=== PATIENT | male | born 1995 | race Caucasian/White ===

== ENCOUNTER 2024-03-16 13:35 | Observation (INO) | payer OTHER ==
[2024-03-16] MEDS: ALBUTEROL NEBULIZED 2.5 MG/3 ML INHALATION STA ×2 (14:04→14:54)
[2024-03-16] MEDS: IPRATROPIUM 0.5 MG/2.5 ML NEBU INHALATION STA ×2 (14:04→14:54)
--- NOTE | 2024-03-16 14:09 | ED ---
General Adult HPI - General Chief complaint: Shortness of Breath Stated complaint: SOB Time Seen by Provider: 03/16/24 13:47 Source: patient, RN notes reviewed, old records reviewed Mode of arrival: ambulatory Limitations: no limitations - History of Present Illness Initial comments: 29-year-old male presenting for evaluation of cough and dyspnea. Patient states he was seen at outside hospital treated for pneumonia. He states that this was approximately 1 week ago. The history is somewhat limited due to the patient's respiratory distress. He has no prior history of asthma but states he does use vaporized tobacco products. - Related Data Allergies Allergy/AdvReac Type Severity Reaction Status Date / Time No Known Allergies Allergy Verified 03/16/24 13:46 Review of Systems ROS Statement: Those systems with pertinent positive or pertinent negative responses have been documented in the HPI. ROS Other: All systems not noted in ROS Statement are negative. Past Medical History Past Medical History: Pneumonia History of Any Multi-Drug Resistant Organisms: None Reported Past Surgical History: No Surgical Hx Reported Past Psychological History: No Psychological Hx Reported Smoking Status: Vaper Past Alcohol Use History: None Reported Past Drug Use History: None Reported General Exam Limitations: no limitations General appearance: in distress Head exam: Present: atraumatic, normocephalic Eye exam: Present: normal appearance, PERRL ENT exam: Present: normal exam Neck exam: Present: normal inspection. Absent: tenderness, meningismus Respiratory exam: Present: respiratory distress, wheezes, accessory muscle use, decreased breath sounds, prolonged expiratory Cardiovascular Exam: Present: regular rate, normal rhythm GI/Abdominal exam: Present: soft. Absent: distended, tenderness Extremities exam: Present: normal inspection, normal capillary refill Neurological exam: Present: alert, oriented X3, CN II-XII intact. Absent: motor sensory deficit Psychiatric exam: Present: normal affect, normal mood Skin exam: Present: warm, dry, intact Course Vital Signs 03/16/24 03/16/24 03/16/24 13:41 14:05 14:14 Temperature 98 F Pulse Rate 114 H 96 92 Respiratory 18 Rate Blood Pressure 131/64 O2 Sat by Pulse 88 L Oximetry 03/16/24 03/16/24 03/16/24 14:26 14:39 14:54 Temperature Pulse Rate 80 83 76 Respiratory Rate Blood Pressure O2 Sat by Pulse Oximetry 03/16/24 15:16 Temperature Pulse Rate 80 Respiratory Rate Blood Pressure O2 Sat by Pulse Oximetry Medical Decision Making - Medical Decision Making Was pt. sent in by a medical professional or institution (TEMITOPE Pulliam, LITHOGRAPHIC PLATE MAKER, urgent care, hospital, or correction...) When possible be specific @ -[No] Did you speak to anyone other than the patient for history (EMS, parent, family, police, friend...)? What history was obtained from this source @ -[No] Did you review nursing and triage notes (agree or disagree)? Why? @ -[I reviewed and agree with nursing and triage notes] Were old charts reviewed (outside hosp., previous admission, EMS record, old EKG, old radiological studies, urgent care reports/EKG's, correction records)? Report findings @ -[No old charts were reviewed] Differential Dyspnea: Coronary syndrome, arrhythmia, tamponade, asthma, COPD, pulmonary embolism, pneumonia, pneumothorax, pulmonary effusion, anaphylaxis, diabetic ketoacidosis, flailed chest, pulmonary contusion, diaphragmatic rupture, anemia, neuromuscu lar, this is not meant to be an all-inclusive list. EKG interpreted by me (3pts min.). @ -EKG sinus rhythm with a ventricular rate of 87, ME interval 139, QRS duration 85, QTc 326 X-rays interpreted by me (1pt min.). @Single view chest x-ray negative for pneumothorax, no focal pneumonia CT interpreted by me (1pt min.). @ -[None done] U/S interpreted by me (1pt. min.). @ -[None done] What testing was considered but not performed or refused? (CT, X-rays, U/S, labs)? Why? @ -[None] What meds were considered but not given or refused? Why? @ -[None] Did you discuss the management of the patient with other professionals (professionals i.e. TEMITOPE Pulliam, LITHOGRAPHIC PLATE MAKER, lab, RT, psych nurse, social psychologist, sequencing machine operator, teacher, asset protection officer, rn case manager hospice)? Give summary @ - Sheet will accept admission Was smoking cessation discussed for >3mins.? @ -[No] Was critical care preformed (if so, how long)? @Yes, 35 minutes Were there social determinants of health that impacted care today? How? (Homelessness, low income, unemployed, alcoholism, drug addiction, transportation, low edu. Level, literacy, decrease access to med. care, intermediate, rehab)? @ -[No] Was there de-escalation of care discussed even if they declined (Discuss DNR or withdrawal of care, Hospice)? DNR status @ -[No] What co-morbidities impacted this encounter? (DM, HTN, Smoking, COPD, CAD, Cancer, CVA, ARF, Chemo, Hep., AIDS, mental health diagnosis, sleep apnea, morbid obesity)? @ -[None] Was patient admitted / discharged? Hospital course, mention meds given and route, prescriptions, significant lab abnormalities, going to OR and other pertinent info. @ -29-year-old male presenting in extremis, minimal air entry, tachypnea, hyp oxia. Patient does have end expiratory wheeze and there is concern for reactive airway, status asthmaticus. Patient is treated with a total of 15 mg of albuterol and 1.5 of Atrovent, 2 g of magnesium is administered as well as Solu- Medrol. The patient has significant improvement but continues to wheeze and require supplemental oxygen. He will be admitted for asthma exacerbation. Pulmonology is placed on consult. Albuterol, Atrovent, steroids will be continued. Undiagnosed new problem with uncertain prognosis? @ -[No] Drug Therapy requiring intensive monitoring for toxicity (Heparin, Nitro, Insulin, Cardizem)? @ -[No] Were any procedures done? @ -[No] Diagnosis/symptom? @ -Status asthmaticus Acute, or Chronic, or Acute on Chronic? @ -Acute Uncomplicated (without systemic symptoms) or Complicated (systemic symptoms)? @ -[default] Side effects of treatment? @ -[No] Exacerbation, Progression, or Severe Exacerbation? @ -[No] Poses a threat to life or bodily function? How? (Chest pain, USA, VT, pneumonia, PE, COPD, DKA, ARF, appy, cholecystitis, CVA, Diverticulitis, Homicidal, Suicidal, threat to staff... and all critical care pts) @Yes, respiratory failure - Lab Data Result diagrams: 03/16/24 14:00 03/16/24 14:00 Lab Results 03/16/24 03/16/24 03/16/24 Range/Units 14:00 14:00 14:00 WBC 9.5 (3.8-10.6) k/uL RBC 5.18 (4.30-5.90) m/uL Hgb 14.0 (13.0-17.5) gm/dL Hct 43.8 (39.0-53.0) % MCV 84.6 (80.0-100.0) fL MCH 27.0 (25.0-35.0) pg MCHC 32.0 (31.0-37.0) g/dL RDW 13.3 (11.5-15.5) % Plt Count 290 (150-450) k/uL MPV 6.8 Neutrophils % 58 % Lymphocytes % 19 % Monocytes % 5 % Eosinophils % 17 % Basophils % 0 % Neutrophils # 5.5 (1.3-7.7) k/uL Lymphocytes # 1.8 (1.0-4.8) k/uL Monocytes # 0.5 (0-1.0) k/uL Eosinophils # 1.6 H (0-0.7) k/uL Basophils # 0.0 (0-0.2) k/uL PT 10.6 (10.0-12.5) sec INR 1.0 (<1.2) APTT 25.8 (22.0-30.0) sec Sodium 137 (137-145) mmol/L Potassium 4.6 (3.5-5.1) mmol/L Chloride 103 (98-107) mmol/L Carbon Dioxide 27 (22-30) mmol/L Anion Gap 7 mmol/L BUN 11 (9-20) mg/dL Creatinine 0.67 (0.66-1.25) mg/dL Est GFR (CKD-EPI)AfAm >90 (>60 ml/min/1.73 sqM) Est GFR (CKD-EPI)NonAf >90 (>60 ml/min/1.73 sqM) Glucose 130 H (74-99) mg/dL Plasma Lactic Acid Leandro (0.7-2.0) mmol/L Calcium 9.4 (8.4-10.2) mg/dL Magnesium 2.2 (1.6-2.3) mg/dL Total Bilirubin 0.6 (0.2-1.3) mg/dL AST 26 (17-59) U/L ALT 27 (4-49) U/L Alkaline Phosphatase 85 (38-126) U/L Troponin I (0.000-0.034) ng/mL Total Protein 7.5 (6.3-8.2) g/dL Albumin 4.7 (3.5-5.0) g/dL 03/16/24 03/16/24 Range/Units 14:00 14:00 WBC (3.8-10.6) k/uL RBC (4.30-5.90) m/uL Hgb (13.0-17.5) gm/dL Hct (39.0-53.0) % MCV (80.0-100.0) fL MCH (25.0-35.0) pg MCHC (31.0-37.0) g/dL RDW (11.5-15.5) % Plt Count (150-450) k/uL MPV Neutrophils % % Lymphocytes % % Monocytes % % Eosinophils % % Basophils % % Neutrophils # (1.3-7.7) k/uL Lymphocytes # (1.0-4.8) k/uL Monocytes # (0-1.0) k/uL Eosinophils # (0-0.7) k/uL Basophils # (0-0.2) k/uL PT (10.0-12.5) sec INR (<1.2) APTT (22.0-30.0) sec Sodium (137-145) mmol/L Potassium (3.5-5.1) mmol/L Chloride (98-107) mmol/L Carbon Dioxide (22-30) mmol/L Anion Gap mmol/L BUN (9-20) mg/dL Creatinine (0.66-1.25) mg/dL Est GFR (CKD-EPI)AfAm (>60 ml/min/1.73 sqM) Est GFR (CKD-EPI)NonAf (>60 ml/min/1.73 sqM) Glucose (74-99) mg/dL Plasma Lactic Acid Leandro 1.3 (0.7-2.0) mmol/L Calcium (8.4-10.2) mg/dL Magnesium (1.6-2.3) mg/dL Total Bilirubin (0.2-1.3) mg/dL AST (17-59) U/L ALT (4-49) U/L Alkaline Phosphatase (38-126) U/L Troponin I <0.012 (0.000-0.034) ng/mL Total Protein (6.3-8.2) g/dL Albumin (3.5-5.0) g/dL Critical Care Time Critical Care Time: Yes Total Critical Care Time: 35 Disposition Clinical Impression: Asthma with status asthmaticus Disposition: ADMITTED IP TO THIS HOSP Condition: Serious Is patient prescribed a controlled substance at d/c from ED?: No Time of Disposition: 15:34
[2024-03-16] MEDS: SODIUM CHLORIDE 0.9% 1,000 ML IV STA (14:23)
[2024-03-16] MEDS: MAGNESIUM SULFATE-D5W PMX 1 GM in DEXTROSE/WATER 1 100ML.BAG IVPB SCH (14:28)
[2024-03-16] MEDS: methylPREDNISolone SOD SUCCI 125 MG/2 ML VIAL IV STA (14:28)
--- NOTE | 2024-03-16 14:32 | XR ---
EXAMINATION TYPE: XR chest 1V portable DATE OF EXAM: 03/16/2024 1:55 PM CLINICAL INDICATION:Male, 29 years old with history of andrei; PHH COMPARISON: None TECHNIQUE: XR chest 1V portable Frontal view of the chest. FINDINGS: Lungs/Pleura: There is no evidence of pleural effusion, focal consolidation, or pneumothorax. Pulmonary vascularity: Unremarkable. Heart/mediastinum: Cardiomediastinal silhouette is unremarkable. Musculoskeletal: No acute osseous pathology. IMPRESSION: No acute cardiopulmonary disease/process.
[2024-03-16 14:38] LABS: Basophils % (A) 0 %; Eosinophils # (A) 1.6 k/uL (0-0.7); Eosinophils % (A) 17 %; HCT 43.8 % (39.0-53.0); Lymphocytes # (A) 1.8 k/uL (1.0-4.8); Lymphocytes % (A) 19 %; MCV 84.6 fL (80.0-100.0); Mean Platelet Volume 6.8; Monocytes # (A) 0.5 k/uL (0-1.0); Monocytes % (A) 5 %; Neutrophils # (A) 5.5 k/uL (1.3-7.7); Neutrophils % (A) 58 %; Platelet Count 290 k/uL (150-450); RBC 5.18 m/uL (4.30-5.90); RDW 13.3 % (11.5-15.5); WBC 9.5 k/uL (3.8-10.6)
[2024-03-16 14:46] LABS: Partial Thromboplastin Time 25.8 sec (22.0-30.0); Prothrombin Time 10.6 sec (10.0-12.5)
[2024-03-16 14:59] LABS: ALT 27 U/L (4-49); AST 26 U/L (17-59); African American GFR (CKD) >90 (>60 ml/min/1.73 sqM); Albumin 4.7 g/dL (3.5-5.0); Alkaline Phosphatase 85 U/L (38-126); Anion Gap 7 mmol/L; Blood Urea Nitrogen 11 mg/dL (9-20); Calcium 9.4 mg/dL (8.4-10.2); Carbon Dioxide 27 mmol/L (22-30); Chloride 103 mmol/L (98-107); Glucose 130 mg/dL (74-99); Magnesium 2.2 mg/dL (1.6-2.3); Non-African American GFR(CKD) >90 (>60 ml/min/1.73 sqM); Potassium 4.6 mmol/L (3.5-5.1); Sodium 137 mmol/L (137-145); Total Bilirubin 0.6 mg/dL (0.2-1.3); Total Protein 7.5 g/dL (6.3-8.2)
[2024-03-16] MEDS ORDERED: NALOXONE 0.4 MG/ML 1 ML VIAL IVP PRN (15:32)
[2024-03-16] MEDS ORDERED: IPRATROPIUM-ALBUTEROL 3 ML NEB INHALATION PRN (15:32)
[2024-03-16] MEDS: IPRATROPIUM-ALBUTEROL 3 ML NEB INHALATION SCH (15:48)
[2024-03-16 18:07] LABS: Glucose,Whole Blood 174 mg/dL (70-110)
[2024-03-16] MEDS: methylPREDNISolone SOD SUCCI 125 MG/2 ML VIAL IV SCH (18:19)
[2024-03-16 20:24] LABS: Glucose,Whole Blood 261 mg/dL (70-110)
[2024-03-16] MEDS ORDERED: DEXTROSE 50% SYRINGE 50 ML IVP PRN ×2 (20:51)
[2024-03-16] MEDS: INSULIN ASPART (NovoLOG) 100 UNIT/ML VIAL SQ SCH (21:28)
--- NOTE | 2024-03-16 21:56 | CT ---
EXAMINATION TYPE: CT brain wo con DATE OF EXAM: 03/16/2024 COMPARISON: Prior CT 2012 HISTORY: r/o encephalopathy CT DLP: 1138.4 mGycm. Automated Exposure Control for Dose Reduction was Utilized. TECHNIQUE: CT scan of the head is performed without contrast. FINDINGS: There is no acute intracranial hemorrhage, mass effect, or midline shift identified. The ventricles and sulci are within normal limits in size. Dunbar-white matter differentiation is maintain ed. The globes are intact bilaterally. Dependent fluid in the left maxillary sinus. Mild/moderate mu cosal thickening in the right maxillary sinus with few small polyps. IMPRESSION: No acute intracranial hemorrhage or midline shift is seen. Acute left maxillary sinus di sease noted.
[2024-03-16 22:20] LABS: Amphetamine Screen,Urine Not Detected (NotDetected); Barbiturate Screen,Urine Not Detected (NotDetected); Benzodiazepines Screen,Urine Detected (NotDetected); Cocaine Screen,Urine Detected (NotDetected); Methadone Screen, Urine Not Detected (NotDetected); Opiate Screen,Urine Detected (NotDetected); Oxycodone Screen, Urine Not Detected (NotDetected); Phencyclidine Screen,Urine Not Detected (NotDetected); Tricyclic Antidepressant,Urine Not Detected (NotDetected); Urn Cannabinoid Scrn Detected (NotDetected)
[2024-03-17] MEDS ORDERED: LORazepam 2 MG/ML INJ IV PRN ×3 (01:59)
[2024-03-17] MEDS: LORazepam 0.5 MG TAB PO PRN (02:33)
[2024-03-17 06:02] LABS: Glucose,Whole Blood 166 mg/dL (70-110)
[2024-03-17 11:51] LABS: Glucose,Whole Blood 136 mg/dL (70-110)
--- NOTE | 2024-03-17 14:34 | HP ---
HISTORY AND PHYSICAL CHIEF COMPLAINT: Shortness of breath and cough. HISTORY OF PRESENT ILLNESS: This 29-year-old gentleman with a past medical history of pneumonia and spontaneous pneumothorax, also had extensive history of substance abuse including vaping and as well as snorting cocaine and fentanyl usage also. The patient is apparently treated for pneumonia . Currently, the patient is complaining of shortness of breath and cough and the patient admitted for further evaluation and treatment. The drug screen is positive for cocaine and THC. Otherwise, chest x-ray which I reviewed personally showed no acute process. There is no history of any fever, rigors, or chills at this time. The patient apparently has been signed for a rehab. PAST MEDICAL HISTORY: Reviewed include pneumonia, spontaneous pneumothorax. HOME MEDICATIONS: None. ALLERGIES: None. FAMILY HISTORY: No history of heart disease or strokes in the family. SOCIAL HISTORY: As mentioned earlier, there is extensive history of substance abuse history. REVIEW OF SYSTEMS: A 14-point review of systems is negative except as mentioned. PHYSICAL EXAMINATION: VITAL SIGNS: Pulse is 74, blood pressure 130/74, respirations 18. HEENT: Conjunctivae normal. NECK: No jugular venous distention. CARDIOVASCULAR: S1, S2. RESPIRATIONS: Diminished at the basis. Few scattered rhonchi and crackles, expiratory wheezing. ABDOMEN: Soft, nontender. NERVOUS SYSTEM: Focal. LABORATORY DATA: Glucose 261. ASSESSMENT: 1. Asthma acute exacerbation with acute purulent tracheobronchitis. 2. Eosinophilia. 3. Extensive history of substance abuse. 4. History of recent pneumonia. 5. History of spontaneous pneumothorax. RECOMMENDATIONS AND DISCUSSION: This 29-year-old gentleman presented with multiple complex medical issues, we will monitor the patient closely continue the current management and continue the symptomatic treatment. Continue with bronchodilators and steroids. I would recommend substance abuse rehab. Otherwise Pulmonary consultation. Prognosis guarded because of multiple complex medical issues. Further recommendations to follow. See orders for details. MMODL / IJN: [id number] / MTDD
--- NOTE | 2024-03-17 15:07 | P.CNPUL ---
History of Present Illness Consult date: 03/17/24 Requesting physician: Shane Macias Reason for consult: dyspnea, cough Chief complaint: Shortness of breath. History of present illness: Pulmonary consult dated March 17, 2024. 29-year-old male who presented to the emergency department, on March 16, complaining of shortness of breath. The patient apparently had a recent admission at [facility], for similar episode, 1 week ago. The patient is seen today in room 379. He is on 3 L of oxygen. The patient denies a history of any lung issues, although in the past, he did have a spontaneous pneumothorax. He does not smoke cigarettes, but he does vape. He apparently also drinks alcohol in excess. The patient is laying in bed, on 3 L. No audible wheezing noted. The patient apparently does not have any history of any lung issues, although pneumonia is mentioned in his past medical history. He denies any surgical history, and, does admit to vaping. He states he does not smoke cigarettes. He denies a history of asthma. Count is 9.5, hemoglobin 14, hematocrit 43.8, and platelet count is 290,000. Sodium 137, potassium 4.6, chlorides 103, CO2 27, BUN 11, creatinine 0.67. Glucose is 136. Troponin is less than 0.012. Albumin 4.7. His drug screen was positive for marijuana, cocaine, benzodiazepines, and opiates. The patient's chest x-ray was normal. The patient's brain CT showed nothing acute. Review of Systems REVIEW OF SYSTEMS: CONSTITUTIONAL: [Negative.] NEUROLOGIC: [ Negative.] HEENT: [ Negative.] CARDIAC: [Negative.] PULMONARY: Shortness of breath, cough, wheezing. GI: [Negative.] : [Negative.] RHEUMATOLOGIC: [ Negative.] IMMUNOLOGIC: [ Negative.] ENDOCRINE: [Negative. ] DERMATOLOGIC: [Negative.] Past Medical History Past Medical History: Pneumonia Additional Past Medical History / Comment(s): Spontanous pneumo History of Any Multi-Drug Resistant Organisms: None Reported Past Surgical History: No Surgical Hx Reported Past Psychological History: No Psychological Hx Reported Smoking Status: Vaper Past Alcohol Use History: None Reported Past Drug Use History: None Reported Medications and Allergies Home Medications Medication Instructions Recorded Confirmed Type No Known Home Medications 03/16/24 03/16/24 History Allergies Allergy/AdvReac Type Severity Reaction Status Date / Time No Known Allergies Allergy Verified 03/16/24 16:13 Physical Exam Osteopathic Statement: *. No significant issues noted on an osteopathic structural exam other than those noted in the History and Physical/Consult. Vitals: Vital Signs Temp Pulse Pulse Resp BP BP Pulse Ox 03/17/24 14:00 74 18 03/17/24 11:51 74 18 126/74 99 03/17/24 11:26 84 03/17/24 11:15 80 03/17/24 09:43 99 18 03/17/24 09:31 97.2 F L 99 18 128/75 92 L 03/17/24 03:00 98 F 78 19 149/77 96 03/16/24 23:31 102 H 18 111/77 98 03/16/24 21:40 98 F 03/16/24 20:43 84 03/16/24 20:30 86 03/16/24 20:25 97.5 F L 80 20 154/71 97 03/16/24 17:00 97.5 F L 74 20 133/74 97 03/16/24 15:41 97.4 F L 84 20 118/75 97 03/16/24 15:16 80 03/16/24 15:00 68 22 137/74 98 Intake and Output 03/16/24 03/17/24 03/17/24 22:59 06:59 14:59 Intake Total 130 10 260 Output Total 350 Balance -220 10 260 Intake: IV 10 10 20 Invasive Line 1 10 10 20 Oral 120 240 Output: Urine 350 Other: Voiding Method Toilet Toilet Toilet Urinal Urinal Urinal # Voids 2 2 Weight 81.647 kg No acute distress, oriented 3. 3 L saturation is 99%. HEENT examination is grossly unremarkable. Mucous membranes are moist. No oral lesions. Neck supple. Full range of motion. No adenopathy thyromegaly or neck vein distention. Cardiovascular examination reveals regular rhythm rate. S1-S2 normal. No S3 or S4. No discernible murmur noted. Heart rate is 74 bpm. Lungs reveal bilateral wheezes and rhonchi. The patient is actually quite bronchospastic. No crackles. 3 L saturation is 99%. Abdomen soft bowel sounds are heard. No masses or tenderness. Extremities are intact. No cyanosis clubbing or edema. Skin is without rash or lesion. Neurologic examination is brief but nonfocal. Results - Laboratory Findings CBC and BMP: 03/16/24 14:00 03/16/24 14:00 PT/INR, D-dimer PT 10.6 sec (10.0-12.5) 03/16/24 14:00 INR 1.0 (<1.2) 03/16/24 14:00 Abnormal lab findings: Abnormal Labs 03/16/24 03/16/24 03/16/24 14:00 14:00 18:04 Eosinophils # 1.6 H Glucose 130 H POC Glucose (mg/dL) 174 H Urine Opiates Screen U Benzodiazepines Scrn Urine Cocaine Screen U Marijuana (THC) Screen 03/16/24 03/16/24 03/17/24 20:19 21:53 05:56 Eosinophils # Glucose POC Glucose (mg/dL) 261 H 166 H Urine Opiates Screen Detected H U Benzodiazepines Scrn Detected H Urine Cocaine Screen Detected H U Marijuana (THC) Screen Detected H 03/17/24 11:45 Eosinophils # Glucose POC Glucose (mg/dL) 136 H Urine Opiates Screen U Benzodiazepines Scrn Urine Cocaine Screen U Marijuana (THC) Screen - Diagnostic Findings Chest x-ray: image reviewed Assessment and Plan Assessment: Acute bronchial inflammation with bronchospasm, of unclear etiology. History of pneumonia. Recent admission for similar episode, at [facility], 1 week arik or. History of alcohol abuse. History of polysubstance abuse, including marijuana, cocaine, benzodiazepines, and opiates. Plan: Plan dated March 17, 2024. The patient should get breathing treatments, and corticosteroids. We will continue to follow. Prognosis is guarded. No additional recommendations are made. Chest x-ray is normal. We will continue to follow make recommendations along the way. Time with Patient: Greater than 30
[2024-03-17 16:37] LABS: Glucose,Whole Blood 172 mg/dL (70-110)
[2024-03-17 20:08] LABS: Glucose,Whole Blood 544 mg/dL (70-110)
[2024-03-17 20:08] LABS: Glucose,Whole Blood 214 mg/dL (70-110)
[2024-03-17 20:13] LABS: Glucose,Whole Blood 205 mg/dL (70-110)
[2024-03-17] MEDS: BUDESONIDE 1 MG/2 ML NEBU INHALATION SCH (20:31)
[2024-03-17] MEDS: FORMOTEROL FUMARATE 20 MCG/2 ML NEBU INHALATION SCH (20:31)
[2024-03-17] MEDS: MONTELUKAST 10 MG TAB PO SCH (21:05)
[2024-03-18 06:40] LABS: Glucose,Whole Blood 176 mg/dL (70-110)
[2024-03-18 07:04] LABS: African American GFR (CKD) >90 (>60 ml/min/1.73 sqM); Anion Gap 9 mmol/L; Basophils % (A) 0 %; Blood Urea Nitrogen 17 mg/dL (9-20); Calcium 9.6 mg/dL (8.4-10.2); Carbon Dioxide 25 mmol/L (22-30); Chloride 101 mmol/L (98-107); Eosinophils # (A) 0.1 k/uL (0-0.7); Eosinophils % (A) 0 %; Glucose 140 mg/dL (74-99); HGB 13.8 gm/dL (13.0-17.5); Lymphocytes # (A) 0.9 k/uL (1.0-4.8); Lymphocytes % (A) 4 %; MCH 28.1 pg (25.0-35.0); MCHC 32.8 g/dL (31.0-37.0); MCV 85.5 fL (80.0-100.0); Mean Platelet Volume 7.4; Monocytes # (A) 0.7 k/uL (0-1.0); Monocytes % (A) 3 %; Neutrophils # (A) 18.9 k/uL (1.3-7.7); Neutrophils % (A) 92 %; Non-African American GFR(CKD) >90 (>60 ml/min/1.73 sqM); Platelet Count 346 k/uL (150-450); Potassium 4.9 mmol/L (3.5-5.1); RBC 4.92 m/uL (4.30-5.90); RDW 13.6 % (11.5-15.5); Sodium 135 mmol/L (137-145); WBC 20.7 k/uL (3.8-10.6)
[2024-03-18] MEDS: CALCIUM CARBONATE 500 MG CHEWABLE PO PRN (08:05)
[2024-03-18 10:09] VITALS: BP 142/72; RESP 16; TEMP 97.5
--- NOTE | 2024-03-18 11:28 | P.PN ---
Subjective Progress Note Date: 03/18/24 29-year-old male who presented to the emergency department, on March 16, complaining of shortness of breath. The patient apparently had a recent admission at [facility], for similar episode, 1 week ago. The patient is seen today in room 379. He is on 3 L of oxygen. The patient denies a history of any lung issues, although in the past, he did have a spontaneous pneumothorax. He does not smoke cigarettes, but he does vape. He apparently also drinks alcohol in excess. The patient is laying in bed, on 3 L. No audible wheezing noted. The patient apparently does not have any history of any lung issues, although pneumonia is mentioned in his past medical history. He denies any surgical history, and, does admit to vaping. He states he does not smoke cigarettes. He denies a history of asthma. Count is 9.5, hemoglobin 14, hematocrit 43.8, and platelet count is 290,000. Sodium 137, potassium 4.6, chlorides 103, CO2 27, BUN 11, creatinine 0.67. Glucose is 136. Troponin is l ess than 0.012. Albumin 4.7. His drug screen was positive for marijuana, cocaine, benzodiazepines, and opiates. The patient's chest x-ray was normal. The patient's brain CT showed nothing acute. The patient is seen today March 18, 2024 in follow-up on the regular medical floor. He is currently sitting up in bed. Awake and alert in no acute distress. He is maintaining good O2 saturations in the 90s on room air. No IV fluids. He is continued on DuoNeb ventilations, Pulmicort and Perforomist inhalations, Singulair and Solu-Medrol. White count 20.7. Hemoglobin 13.8. Platelets 346. Sodium 135. Potassium 4.9. Bicarb 25. BUN 17. Creatinine 0.65. Glucose 140. Objective - Vital Signs Vital signs: Vital Signs Temp 97.5 F L 03/18/24 07:11 Pulse 111 H 03/18/24 09:35 Resp 16 03/18/24 07:11 BP 142/72 03/18/24 07:11 Pulse Ox 96 03/18/24 09:18 FiO2 Intake & Output 03/17/24 03/18/24 03/18/24 18:59 06:59 18:59 Intake Total 260 140 Balance 260 140 Weight 80.5 kg Intake: IV 20 20 Invasive Line 1 20 20 Oral 240 120 Other: Voiding Method Toilet Toilet Toilet Urinal Urinal Urinal # Voids 2 1 - Exam GENERAL EXAM: Alert, pleasant 29-year-old male, on room air, comfortable in no apparent distress. HEAD: Normocephalic. EYES: Normal reaction of pupils, equal size. NOSE: Clear with pink turbinates. THROAT: No erythema or exudates. NECK: No masses, no JVD. CHEST: No chest wall deformity. LUNGS: Equal air entry with no crackles, wheeze, rhonchi or dullness. CVS: S1 and S2 normal with no audible murmur, regular rhythm. ABDOMEN: No hepatosplenomegaly, normal bowel sounds, no guarding or rigidity. SPINE: No scoliosis or deformity SKIN: No rashes CENTRAL NERVOUS SYSTEM: No focal deficits, tone is normal in all 4 extremities. EXTREMITIES: There is no peripheral edema. No clubbing, no cyanosis. Edita pheral pulses are intact. - Labs CBC & Chem 7: 03/18/24 06:13 03/18/24 06:13 Labs: Abnormal Lab Results - Last 24 Hours (Table) 03/17/24 03/17/24 03/17/24 Range/Units 11:45 16:36 20:05 WBC (3.8-10.6) k/uL Neutrophils # (1.3-7.7) k/uL Lymphocytes # (1.0-4.8) k/uL Sodium (137-145) mmol/L Creatinine (0.66-1.25) mg/dL Glucose (74-99) mg/dL POC Glucose (mg/dL) 136 H 172 H 544 H* (70-110) mg/dL 03/17/24 03/17/24 03/18/24 Range/Units 20:07 20:11 06:13 WBC 20.7 H (3.8-10.6) k/uL Neutrophils # 18.9 H (1.3-7.7) k/uL Lymphocytes # 0.9 L (1.0-4.8) k/uL Sodium (137-145) mmol/L Creatinine (0.66-1.25) mg/dL Glucose (74-99) mg/dL POC Glucose (mg/dL) 214 H 205 H (70-110) mg/dL 03/18/24 03/18/24 Range/Units 06:13 06:37 WBC (3.8-10.6) k/uL Neutrophils # (1.3-7.7) k/uL Lymphocytes # (1.0-4.8) k/uL Sodium 135 L (137-145) mmol/L Creatinine 0.65 L (0.66-1.25) mg/dL Glucose 140 H (74-99) mg/dL POC Glucose (mg/dL) 176 H (70-110) mg/dL Assessment and Plan Assessment: Acute bronchial inflammation with bronchospasm, of unclear etiology. Suspect early onset asthma, viral bronchitis with bronchospasm, or vaping acquired acute lung injury History of pneumonia Recent admission for similar episode, at [facility], 1 week prior History of alcohol abuse History of polysubstance abuse, including marijuana, cocaine, benzodiazepines, and opiates Plan: The patient was seen and evaluated Medications and labs reviewed Stable and on room air Feeling back to his baseline Cleared for discharge Educated regarding the importance of smoking/vaping cessation Educated regarding the importance of drug cessation Follow-up in our office in 1 week I have personally seen and examined the patient, performed the documentation and the assessment and plan as written. Number of minutes spent on the visit: 10.
[2024-03-18 11:39] LABS: Glucose,Whole Blood 151 mg/dL (70-110)
[2024-03-18 12:32] VITALS: PULSE 96
--- NOTE | 2024-03-18 14:36 | DS ---
DISCHARGE SUMMARY FINAL DIAGNOSES: 1. Acute asthma exacerbation with acute tracheobronchitis. 2. Eosinophilia. 3. Extensive history of substance abuse. 4. History of recent pneumonia. 5. History of spontaneous pneumothorax. DISCHARGE DISPOSITION: The patient is discharged in stable condition, guarded prognosis. HISTORY OF PRESENT ILLNESS: This 29-year-old gentleman admitted with asthma exacerbation, patient with extensive history of vaping and associated polysubstance abuse, treated with bronchodilators, steroids, improved significantly. PHYSICAL EXAMINATION: VITAL SIGNS: Stable. CARDIOVASCULAR: S1, S2. RESPIRATIONS: Few scattered rhonchi. The patient will be discharged with the following discharge medications. Continue with prednisone taper, Singulair 10 mg q.h.s., Advair as well as Ventolin inhalers and follow up with Dr. Patel and follow up with Dr. Mignon Marroquin in the outpatient setting. [id number] / STAR: [id number] /
[2024-03-19] MEDS ORDERED: predniSONE 20 MG TAB PO SCH (09:00)
== END 2024-03-18 14:28 | disposition home or self-care (01) ==
LOC: EC 13:35 → INTOOBSV 15:34 → 3SCARD 15:34 → 4SSUR 03-17 21:17
PROVIDERS: ADMIT Internal Medicine; ATTEND Internal Medicine
DX: R06.02 Shortness of breath (principal); J45.901 Unspecified asthma with (acute) exacerbation; D72.10 Eosinophilia, unspecified; J20.9 Acute bronchitis, unspecified; F10.20 Alcohol dependence, uncomplicated; F17.290 Nicotine dependence, other tobacco product, uncomplicated; Z87.01 Personal history of pneumonia (recurrent); F19.90 Other psychoactive substance use, unspecified, uncomplicated
CPT/HCPCS: 96376 ×3; 96365; 96366; 96375; 99285; 36415; 94640 ×6; 94760; 93005; 80053; 80048; 83605; 83735; 84484; 85025 ×2; 85610; 85730; 80306; 83036; 71045; 70450; G0378 ×4; J3475; J2919 ×3

== ENCOUNTER 2024-03-27 13:37 | Emergency (ER) | payer OTHER ==
[2024-03-27 14:04] VITALS: BP 138/99; PULSE 97; RESP 18; TEMP 98.1
== END 2024-03-27 14:54 | disposition left against medical advice (07) ==
LOC: EC 13:37
DX: Z53.21 Procedure and treatment not carried out due to patient leaving prior to being seen by health care provider (principal)
CPT/HCPCS: 99499